=== PATIENT | female | born 1990 | race Caucasian/White ===

== ENCOUNTER 2018-08-31 18:25 | Emergency (ER) | payer SELFPAY ==
[~2018-08-31 18:25] MED LIST: ALPR1TAB2 PO; BUPR1FIL3 PO
[2018-08-31 18:37] VITALS: BP 141/75
[2018-08-31] MEDS ORDERED: LIDOCAINE-MPF 1%, 5ML INFIL ONE (19:00)
[2018-08-31] MEDS ORDERED: LIDOCAINE-MPF 1%, 5ML ONE (19:10)
[2018-08-31] MEDS ORDERED: QUET50TA5 PO (19:22)
== END 2018-08-31 20:16 | disposition home or self-care (01) ==
LOC: ED 19:41
DX: L03.114 Cellulitis of left upper limb (principal); L02.414 Cutaneous abscess of left upper limb
CPT/HCPCS: 10060; 99283

== ENCOUNTER 2018-09-03 07:22 | Emergency (ER) | payer SELFPAY ==
[~2018-09-03] VITALS: Ht 167.6 cm; Wt 103.6 kg
[~2018-09-03 07:22] MED LIST changes: +QUET50TA5 PO
[2018-09-03 07:24] VITALS: BP 135/86
== END 2018-09-03 08:20 | disposition home or self-care (01) ==
LOC: ED 08:14
DX: L03.211 Cellulitis of face (principal); L03.114 Cellulitis of left upper limb; L08.9 Local infection of the skin and subcutaneous tissue, unspecified; Z90.49 Acquired absence of other specified parts of digestive tract; F17.200 Nicotine dependence, unspecified, uncomplicated
CPT/HCPCS: 99281